=== PATIENT | female | born 1940 | race Caucasian/White ===

== ENCOUNTER 2023-04-18 13:14 | Inpatient (IN) | payer BC ==
[~2023-04-18] VITALS: Ht 154.9 cm; Wt 72.3 kg
[2023-04-18 13:54] VITALS: BP_SYST 124; PULSE 77; RESP 20; TEMP 98.3; O2SAT 98
[2023-04-18] MEDS ORDERED: NACL 0.9% 1,000 ML IV ONE (14:15)
[2023-04-18 15:06] LABS: ANION GAP 9 (5-15); BASOPHILS % (AUTO) 0.5 % (0.0-2.0); CALCIUM 8.9 mg/dL (8.4-11.0); CARBON DIOXIDE 28 mmol/L (23-29); CHLORIDE 108 mmol/L (98-107); CREATININE 0.75 mg/dL (0.55-1.30); EOSINOPHILS # (AUTO) 0.1 K/uL (0.0-0.4); GLUCOSE 102 mg/dL (74-106); MONOCYTES # (AUTO) 0.4 K/uL (0.0-1.0); POTASSIUM 3.4 mmol/L (3.5-5.1); SODIUM SERUM 145 mmol/L (136-145); UREA NITROGEN, BLOOD 15 mg/dL (8-21)
[2023-04-18 15:22] LABS: EOSINOPHILS % (AUTO) 2.9 % (0.0-4.0); HEMATOCRIT 38.9 % (36-48); HEMOGLOBIN 13.1 g/dL (12.0-16.0); LYMPHOCYTES # (AUTO) 1.6 K/uL (1.0-5.5); LYMPHOCYTES % (AUTO) 31.8 % (20.5-51.5); MEAN CORPUSCULAR HEMOGLOBIN 28 pg (27-31); MEAN CORPUSCULAR HGB CONC 34 % (32-36); MEAN CORPUSCULAR VOLUME 84 fL (79.0-98.0); MONOCYTES % (AUTO) 7.8 % (1.7-9.3); NEUTROPHILS # (AUTO) 2.9 K/uL (1.8-7.7); PLATELET COUNT (AUTO) 251 K/uL (130-430); RED BLOOD CELL COUNT(AUTO) 4.61 MIL/uL (4.2-6.2); RED CELL DISTRIBUTION WIDTH 13.1 % (9.0-15.0); WHITE BLOOD COUNT (AUTO) 5.1 K/uL (4.8-10.8)
[2023-04-18] MEDS ORDERED: D5/0.45 NS 1,000 ML IV ONE (19:30)
[2023-04-18 23:00] VITALS: BP_SYST 143; PULSE 78; RESP 18; TEMP 98
[2023-04-19] MEDS ORDERED: LEVO112C4 PO (04:00)
[2023-04-19] MEDS ORDERED: DESO60GE (04:00)
[2023-04-19] MEDS ORDERED: ECON70FO TP (04:00)
[2023-04-19] MEDS ORDERED: TRAM50TA2 PO (04:00)
[2023-04-19 08:00] VITALS: BP_SYST 104; PULSE 75; RESP 16; TEMP 97.7; O2SAT 100
[2023-04-19] MEDS ORDERED: MIDAZOLAM HCL 5 MG/5 ML VIAL ONE (10:04)
[2023-04-19] MEDS ORDERED: MEPERIDINE 100 MG INJ. 100 MG/ML VIAL ONE (10:04)
[2023-04-19] MEDS ORDERED: PANTOPRAZOLE SODIUM 40 MG/VIAL (PROTONIX) IVP ONE (11:15)
[2023-04-19 12:00] VITALS: BP_SYST 133; PULSE 85; RESP 18; TEMP 98; O2SAT 100
[2023-04-19] MEDS ORDERED: OMEP20TA20 PO (12:46)
[2023-04-19 16:00] VITALS: BP_SYST 138; PULSE 80; RESP 18; TEMP 98.2; O2SAT 96
[2023-04-19 20:00] VITALS: BP_SYST 146; PULSE 86; RESP 18; TEMP 97.7; O2SAT 95
[2023-04-20 01:02] VITALS: BP_SYST 132; PULSE 77; RESP 17; TEMP 98.4; O2SAT 99
[2023-04-20 01:37] VITALS: BP_SYST 126; BP_SYST 132; PULSE 77; RESP 18; TEMP 97.5; TEMP 98.4; O2SAT 99
[2023-04-20 06:30] VITALS: BP_SYST 126; PULSE 65; RESP 18; TEMP 97.5; O2SAT 96
[2023-04-20 07:50] LABS: BASOPHILS % (AUTO) 0.5 % (0.0-2.0); EOSINOPHILS # (AUTO) 0.2 K/uL (0.0-0.4); EOSINOPHILS % (AUTO) 3.9 % (0.0-4.0); HEMATOCRIT 35.4 % (36-48); HEMOGLOBIN 11.7 g/dL (12.0-16.0); LYMPHOCYTES % (AUTO) 35.5 % (20.5-51.5); MEAN CORPUSCULAR HEMOGLOBIN 28 pg (27-31); MEAN CORPUSCULAR HGB CONC 33 % (32-36); MEAN CORPUSCULAR VOLUME 84 fL (79.0-98.0); MONOCYTES # (AUTO) 0.5 K/uL (0.0-1.0); MONOCYTES % (AUTO) 9.4 % (1.7-9.3); NEUTROPHILS # (AUTO) 2.9 K/uL (1.8-7.7); NEUTROPHILS % (AUTO) 50.7 % (40.0-70.0); PLATELET COUNT (AUTO) 220 K/uL (130-430); RED CELL DISTRIBUTION WIDTH 13.2 % (9.0-15.0); WHITE BLOOD COUNT (AUTO) 5.7 K/uL (4.8-10.8)
[2023-04-20 07:59] LABS: ANION GAP 7 (5-15); CALCIUM 7.5 mg/dL (8.4-11.0); CARBON DIOXIDE 27 mmol/L (23-29); CHLORIDE 105 mmol/L (98-107); CREATININE 0.52 mg/dL (0.55-1.30); GLUCOSE 89 mg/dL (74-106); SODIUM SERUM 139 mmol/L (136-145); UREA NITROGEN, BLOOD 17 mg/dL (8-21)
[2023-04-20] MEDS ORDERED: PANTOPRAZOLE SODIUM 40 MG/VIAL (PROTONIX) IVP SCH (09:00)
== END 2023-04-20 07:15 | disposition home or self-care (01) | DRG 392 ==
LOC: SED 13:14 → SMU 19:19
PROVIDERS: ADMIT Preventive Medicine Preventive Medicine/Occupational Environmental Medicine; ATTEND Preventive Medicine Preventive Medicine/Occupational Environmental Medicine
PROC: 0D758ZZ Dilation of Esophagus, Via Natural or Artificial Opening Endoscopic (ICD-10-PCS; 2023-04-19)
PROC: 0DB28ZX Excision of Middle Esophagus, Via Natural or Artificial Opening Endoscopic, Diagnostic (ICD-10-PCS; principal; 2023-04-19 09:40)
PROC: 0DB78ZX Excision of Stomach, Pylorus, Via Natural or Artificial Opening Endoscopic, Diagnostic (ICD-10-PCS; 2023-04-19 09:40)
DX: K22.2 Esophageal obstruction (principal); K29.70 Gastritis, unspecified, without bleeding; K44.9 Diaphragmatic hernia without obstruction or gangrene; R13.10 Dysphagia, unspecified; E03.9 Hypothyroidism, unspecified; E87.6 Hypokalemia; M47.812 Spondylosis without myelopathy or radiculopathy, cervical region; Z90.49 Acquired absence of other specified parts of digestive tract; Z88.0 Allergy status to penicillin; Z79.899 Other long term (current) drug therapy
CPT/HCPCS: 36415; 43239; 70360-TC; 80048; 85025; 87081; 88305; 88312; 88313; 96360; 99285; C1769; J2175; J2250

== ENCOUNTER 2023-05-10 18:10 | Emergency (ER) | payer BC ==
[~2023-05-10] VITALS: Ht 165.1 cm; Wt 77.1 kg
[~2023-05-10 18:10] MED LIST: DESO60GE; ECON70FO TP; LEVO112C4 PO; OMEP20TA20 PO; TRAM50TA2 PO
[2023-05-10] MEDS ORDERED: SODIUM PHOSPHATE,MONO-DIBASIC 133 ML ENEMA RC ONE (19:15)
[2023-05-10 19:24] LABS: BASOPHILS % (AUTO) 0.6 % (0.0-2.0); EOSINOPHILS # (AUTO) 0.2 K/uL (0.0-0.4); EOSINOPHILS % (AUTO) 2.3 % (0.0-4.0); HEMATOCRIT 42.3 % (36-48); HEMOGLOBIN 13.4 g/dL (12.0-16.0); LYMPHOCYTES # (AUTO) 2.1 K/uL (1.0-5.5); LYMPHOCYTES % (AUTO) 30.7 % (20.5-51.5); MEAN CORPUSCULAR HEMOGLOBIN 27 pg (27-31); MEAN CORPUSCULAR HGB CONC 32 % (32-36); MEAN CORPUSCULAR VOLUME 86 fL (79.0-98.0); MONOCYTES # (AUTO) 0.5 K/uL (0.0-1.0); MONOCYTES % (AUTO) 6.8 % (1.7-9.3); NEUTROPHILS # (AUTO) 4.2 K/uL (1.8-7.7); NEUTROPHILS % (AUTO) 59.6 % (40.0-70.0); PLATELET COUNT (AUTO) 254 K/uL (130-430); RED BLOOD CELL COUNT(AUTO) 4.93 MIL/uL (4.2-6.2); RED CELL DISTRIBUTION WIDTH 13.6 % (9.0-15.0)
[2023-05-10 19:33] LABS: BILIRUBIN,URINE NEGATIVE (NEGATIVE); BLOOD, URINE NEGATIVE (NEGATIVE); CLARITY/URINE CLEAR (CLEAR); COLOR,URINE YELLOW (YELLOW); GLUCOSE,URINE NEGATIVE (NEGATIVE); KETONES,URINE NEGATIVE (NEGATIVE); LEUKOCYTE ESTERASE ,URINE 3+ (NEGATIVE); NITRITE, URINE POSITIVE (NEGATIVE); PH,URINE 6.5 (5.0-8.0); PROTEIN URINE NEGATIVE (NEGATIVE); UROBILINOGEN,URINE 0.2 (0.2-1.0)
[2023-05-10 19:34] LABS: ANION GAP 7 (5-15); CALCIUM 9.2 mg/dL (8.4-11.0); CARBON DIOXIDE 26 mmol/L (23-29); CHLORIDE 103 mmol/L (98-107); CREATININE 0.76 mg/dL (0.55-1.30); GLUCOSE 100 mg/dL (74-106); POTASSIUM 3.6 mmol/L (3.5-5.1); SODIUM SERUM 136 mmol/L (136-145); UREA NITROGEN, BLOOD 14 mg/dL (8-21)
[2023-05-10 19:38] LABS: ALANINE AMINOTRANSFERASE 11 U/L (12-78); ALBUMIN 3.1 g/dL (3.4-4.8); ASPARTATE AMINOTRANSFERASE 12 U/L (10-37); TOTAL BILIRUBIN 0.5 mg/dL (0.0-1.0); TOTAL PROTEIN, SERUM 7.1 g/dL (6.4-8.3)
[2023-05-10] MEDS ORDERED: CEPH250C PO (20:26)
[2023-05-10 20:41] LABS: BACTERIA,URINE MODERATE /HPF (None Seen); RBC,URINE 50-80 /HPF (0-3); WBC,URINE >100 /HPF (0-3)
[2023-05-10 23:15] VITALS: BP_SYST 113; PULSE 73; RESP 16; TEMP 97.8; O2SAT 97
== END 2023-05-10 23:15 | disposition home or self-care (01) ==
LOC: SED 18:10
DX: K59.00 Constipation, unspecified (principal); N39.0 Urinary tract infection, site not specified; R10.9 Unspecified abdominal pain; Z88.0 Allergy status to penicillin; Z79.899 Other long term (current) drug therapy
CPT/HCPCS: 36415; 74018; 80053; 81000; 81001; 81015; 85025; 87086; 99284

== ENCOUNTER 2023-09-20 16:32 | Inpatient (IN) | payer OTHER, BC ==
[~2023-09-20] VITALS: Ht 154.9 cm; Wt 79.4 kg
[~2023-09-20 16:32] MED LIST changes: +CEPH250C PO; -DESO60GE; +DESO60GE TP
[2023-09-20 17:01] VITALS: BP_SYST 122; PULSE 70; RESP 16; TEMP 98.5; O2SAT 97
[2023-09-20] MEDS: HYDROcodone/ACETAMIN 5-325 MG TAB (NORCO/ VICODIN) PO ONE (19:38)
[2023-09-20 20:39] LABS: BILIRUBIN,URINE NEGATIVE (NEGATIVE); CLARITY/URINE SL CLOUDY (CLEAR); COLOR,URINE YELLOW (YELLOW); GLUCOSE,URINE NEGATIVE (NEGATIVE); KETONES,URINE NEGATIVE (NEGATIVE); LEUKOCYTE ESTERASE ,URINE 3+ (NEGATIVE); NITRITE, URINE NEGATIVE (NEGATIVE); PROTEIN URINE NEGATIVE (NEGATIVE); UROBILINOGEN,URINE 0.2 (0.2-1.0)
[2023-09-20 20:57] LABS: BLOOD, URINE TRACE (NEGATIVE)
[2023-09-20 21:04] LABS: BASOPHILS % (AUTO) 0.3 % (0.0-2.0); EOSINOPHILS # (AUTO) 0.2 K/uL (0.0-0.4); LYMPHOCYTES # (AUTO) 2.1 K/uL (1.0-5.5); LYMPHOCYTES % (AUTO) 40.3 % (20.5-51.5); MEAN CORPUSCULAR HEMOGLOBIN 28 pg (27-31); MEAN CORPUSCULAR HGB CONC 33 % (32-36); MEAN CORPUSCULAR VOLUME 84 fL (79.0-98.0); MONOCYTES # (AUTO) 0.4 K/uL (0.0-1.0); NEUTROPHILS # (AUTO) 2.6 K/uL (1.8-7.7); NEUTROPHILS % (AUTO) 49.4 % (40.0-70.0); PLATELET COUNT (AUTO) 255 K/uL (130-430); RED BLOOD CELL COUNT(AUTO) 4.64 MIL/uL (4.2-6.2); RED CELL DISTRIBUTION WIDTH 12.6 % (9.0-15.0); WHITE BLOOD COUNT (AUTO) 5.2 K/uL (4.8-10.8)
[2023-09-20 21:29] LABS: ANION GAP 9 (5-15); CARBON DIOXIDE 28 mmol/L (23-29); CHLORIDE 103 mmol/L (98-107); CREATININE 0.79 mg/dL (0.55-1.30); GLUCOSE 94 mg/dL (74-106); POTASSIUM 3.4 mmol/L (3.5-5.1); SODIUM SERUM 140 mmol/L (136-145); UREA NITROGEN, BLOOD 18 mg/dL (8-21)
[2023-09-20 21:35] LABS: ALANINE AMINOTRANSFERASE 12 U/L (12-78); ASPARTATE AMINOTRANSFERASE 12 U/L (10-37); LIPASE 44 U/L (16-77); TOTAL BILIRUBIN 0.4 mg/dL (0.0-1.0); TOTAL PROTEIN, SERUM 6.8 g/dL (6.4-8.3)
[2023-09-20 21:56] LABS: BACTERIA,URINE MANY /HPF (None Seen)
[2023-09-20] MEDS: CIPROFLOXACIN LACT 400 MG/D5W 200 ML IV SCH (22:31)
[2023-09-20] MEDS: POTASSIUM CHLORIDE 20 MEQ/PKT PACKET PO ONE (23:31)
[2023-09-20] MEDS ORDERED: ACETAMINOPHEN 325 MG TABLET PO PRN (23:45)
[2023-09-21 03:53] LABS: ANION GAP 3 (5-15); CALCIUM 8.7 mg/dL (8.4-11.0); CARBON DIOXIDE 30 mmol/L (23-29); CHLORIDE 107 mmol/L (98-107); CREATININE 0.77 mg/dL (0.55-1.30); GLUCOSE 109 mg/dL (74-106); POTASSIUM 4.4 mmol/L (3.5-5.1); SODIUM SERUM 140 mmol/L (136-145); UREA NITROGEN, BLOOD 18 mg/dL (8-21)
[2023-09-21 04:07] LABS: ALANINE AMINOTRANSFERASE 13 U/L (12-78); ALBUMIN 2.8 g/dL (3.4-4.8); ASPARTATE AMINOTRANSFERASE 12 U/L (10-37); FREE T4 (FREE THYROXINE) 1.1 ng/dL (0.6-1.6); THYROID STIMULATING HORMONE 1.94 uIu/mL (0.34-4.82); TOTAL BILIRUBIN 0.4 mg/dL (0.0-1.0); TOTAL PROTEIN, SERUM 6.4 g/dL (6.4-8.3)
[2023-09-21 04:19] LABS: BASOPHILS % (AUTO) 0.7 % (0.0-2.0); EOSINOPHILS # (AUTO) 0.2 K/uL (0.0-0.4); EOSINOPHILS % (AUTO) 3.8 % (0.0-4.0); HEMATOCRIT 36.9 % (36-48); HEMOGLOBIN 12.5 g/dL (12.0-16.0); LYMPHOCYTES # (AUTO) 2.2 K/uL (1.0-5.5); LYMPHOCYTES % (AUTO) 41.7 % (20.5-51.5); MEAN CORPUSCULAR HEMOGLOBIN 28 pg (27-31); MEAN CORPUSCULAR HGB CONC 34 % (32-36); MEAN CORPUSCULAR VOLUME 84 fL (79.0-98.0); MONOCYTES # (AUTO) 0.5 K/uL (0.0-1.0); MONOCYTES % (AUTO) 10.2 % (1.7-9.3); NEUTROPHILS # (AUTO) 2.3 K/uL (1.8-7.7); NEUTROPHILS % (AUTO) 43.6 % (40.0-70.0); PLATELET COUNT (AUTO) 254 K/uL (130-430); RED BLOOD CELL COUNT(AUTO) 4.39 MIL/uL (4.2-6.2); WHITE BLOOD COUNT (AUTO) 5.3 K/uL (4.8-10.8)
[2023-09-21] MEDS: LEVOTHYROXINE SODIUM 0.112 MG TABLET PO SCH (07:05)
[2023-09-21] MEDS ORDERED: NON-FORMULARY MEDICATION (Omeprazole (Prilosec Otc) 1 TAB) PO SCH (09:00)
[2023-09-21] MEDS ORDERED: OMEP40CA20 PO (09:12)
[2023-09-21] MEDS: PANTOPRAZOLE SODIUM 40 MG TAB PO SCH (09:13)
[2023-09-21 11:32] VITALS: BP_SYST 127; PULSE 75; RESP 17; TEMP 96.9; O2SAT 0
[2023-09-21 11:36] VITALS: BP_SYST 127; PULSE 75; RESP 17; TEMP 96.9; O2SAT 97
[2023-09-21] MEDS: traMADol HCL HCL 50 MG TABLET (ULTRAM) PO PRN (14:11)
[2023-09-21 15:18] VITALS: BP_SYST 105; PULSE 83; RESP 16; TEMP 97.9; O2SAT 97
[2023-09-21 20:05] VITALS: BP_SYST 115; PULSE 93; RESP 17; TEMP 98.1; O2SAT 94
[2023-09-21 20:10] VITALS: O2SAT 93
[2023-09-21] MEDS: CIPROFLOXACIN LACT 400 MG/D5W 200 ML IV ONE (20:44)
[2023-09-22] MEDS: DOCUSATE SODIUM 250 MG CAPSULE PO ONE
[2023-09-22 00:29] VITALS: BP_SYST 135; PULSE 84; RESP 17; TEMP 97.9; O2SAT 93
[2023-09-22] MEDS: MILK OF MAGNESIA 30 ML UDC PO ONE ×2 (06:26→09:28)
[2023-09-22 08:01] VITALS: BP_SYST 123; PULSE 77; RESP 16; TEMP 97.1; O2SAT 98
[2023-09-22 08:31] VITALS: O2SAT 98
[2023-09-22] MEDS: DOCUSATE SODIUM 250 MG CAPSULE PO SCH (09:30)
[2023-09-22 11:11] VITALS: BP_SYST 128; PULSE 70; RESP 16; TEMP 96.7; O2SAT 96
[2023-09-22 15:40] VITALS: BP_SYST 117; PULSE 72; RESP 16; TEMP 98.7; O2SAT 93
[2023-09-22] MEDS: LACTULOSE 20 GM/30 ML UDC PO ONE (17:27)
[2023-09-22] MEDS: CHOLECALCIFEROL (VITAMIN D3) 2,000 UNIT TABLET PO ONE (17:27)
[2023-09-22 20:10] VITALS: BP_SYST 113; PULSE 86; RESP 18; TEMP 97.7; O2SAT 95
[2023-09-22] MEDS: CIPROFLOXACIN LACT 400 MG/D5W 200 ML IV ONE (23:22)
[2023-09-23] VITALS (8 sets, daily range): BP systolic 112–126; PULSE 75–81; RESP 15–18; TEMP 96.8–98.8; O2SAT 94–98
[2023-09-23] MEDS: MAGNESIUM OXIDE 400 MG TABLET PO SCH (09:00)
[2023-09-23] MEDS: CHOLECALCIFEROL (VITAMIN D3) 2,000 UNIT TABLET PO SCH (09:30)
[2023-09-23] MEDS ORDERED: CIPROFLOXACIN LACT 400 MG/D5W 200 ML IV SCH (10:00)
[2023-09-23] MEDS: cefTRIAXone 1 GM in D5W 50 ML IV SCH (11:30)
[2023-09-23] MEDS ORDERED: ROCPM1 IV (13:58)
== END 2023-09-23 18:50 | DRG 554 ==
LOC: SED 16:32 → SMU 21:44
PROVIDERS: ADMIT Internal Medicine; ATTEND Internal Medicine
PROC: 4A10X4Z Monitoring of Central Nervous Electrical Activity, External Approach (ICD-10-PCS; principal; 2023-09-23)
DX: M17.12 Unilateral primary osteoarthritis, left knee (principal); N39.0 Urinary tract infection, site not specified; E44.1 Mild protein-calorie malnutrition; E87.6 Hypokalemia; Z68.33 Body mass index [BMI] 33.0-33.9, adult; S20.212A Contusion of left front wall of thorax, initial encounter; K21.9 Gastro-esophageal reflux disease without esophagitis; E03.9 Hypothyroidism, unspecified; W18.39XA Other fall on same level, initial encounter; Y93.89 Activity, other specified; Y92.89 Other specified places as the place of occurrence of the external cause; Y99.8 Other external cause status; Z87.891 Personal history of nicotine dependence; Z90.49 Acquired absence of other specified parts of digestive tract; Z88.0 Allergy status to penicillin
CPT/HCPCS: 36415; 70450-TC; 71045; 71100; 73564; 80053; 81000; 81001; 81015; 83605; 83690; 83735; 83880; 84439; 84443; 84484; 85025; 87040; 87086; 93005; 93306; 95816; 97110-GP; 97116-GP; 97530-GP; 99285; J0696; J0744; J7060

== ENCOUNTER 2023-11-15 16:09 | Inpatient (IN) | payer OTHER, BC ==
[~2023-11-15] VITALS: Ht 152.4 cm; Wt 81.2 kg
[~2023-11-15 16:09] MED LIST changes: -CEPH250C PO; -OMEP20TA20 PO; +OMEP40CA20 PO; +ROCPM1 IV; -TRAM50TA2 PO
[2023-11-15 16:13] VITALS: BP_SYST 127; PULSE 84; RESP 18; TEMP 98.5; O2SAT 98
[2023-11-15] MEDS ORDERED: CLOT15CR5 TP (16:23)
[2023-11-15 17:37] LABS: BASOPHILS % (AUTO) 0.6 % (0.0-2.0); EOSINOPHILS # (AUTO) 0.2 K/uL (0.0-0.4); EOSINOPHILS % (AUTO) 3.4 % (0.0-4.0); HEMATOCRIT 39.4 % (36-48); HEMOGLOBIN 13.2 g/dL (12.0-16.0); LYMPHOCYTES # (AUTO) 1.9 K/uL (1.0-5.5); LYMPHOCYTES % (AUTO) 37.9 % (20.5-51.5); MEAN CORPUSCULAR HEMOGLOBIN 28 pg (27-31); MEAN CORPUSCULAR HGB CONC 34 % (32-36); MEAN CORPUSCULAR VOLUME 84 fL (79.0-98.0); MONOCYTES # (AUTO) 0.5 K/uL (0.0-1.0); MONOCYTES % (AUTO) 9.3 % (1.7-9.3); NEUTROPHILS # (AUTO) 2.4 K/uL (1.8-7.7); NEUTROPHILS % (AUTO) 48.8 % (40.0-70.0); PLATELET COUNT (AUTO) 255 K/uL (130-430); RED CELL DISTRIBUTION WIDTH 13.2 % (9.0-15.0)
[2023-11-15 18:05] LABS: ANION GAP 7 (5-15); CALCIUM 8.6 mg/dL (8.4-11.0); CARBON DIOXIDE 29 mmol/L (23-29); CHLORIDE 105 mmol/L (98-107); CREATININE 0.84 mg/dL (0.55-1.30); GLUCOSE 98 mg/dL (74-106); POTASSIUM 4.1 mmol/L (3.5-5.1); SODIUM SERUM 141 mmol/L (136-145); UREA NITROGEN, BLOOD 15 mg/dL (8-21)
[2023-11-15] MEDS ORDERED: KETO60CR2 TP (18:43)
[2023-11-15] MEDS ORDERED: LEVO112T5 PO (18:43)
[2023-11-15] MEDS ORDERED: DESONIDE (18:43)
[2023-11-15] MEDS ORDERED: DOCU-156 PO (18:43)
[2023-11-15] MEDS ORDERED: OMEPRAZOLE (18:43)
[2023-11-15] MEDS ORDERED: KETOROLAC TROMETHAMINE 15 MG VIAL IVP ONE (18:45)
[2023-11-15] MEDS ORDERED: ACETAMINOPHEN 500 MG TABLET PO ONE (18:45)
[2023-11-15 22:00] VITALS: BP_SYST 91; PULSE 74; RESP 16; TEMP 97.2; O2SAT 95
[2023-11-15 22:30] VITALS: BP_SYST 91; PULSE 74; RESP 16; TEMP 97.2
[2023-11-16] VITALS (7 sets, daily range): BP systolic 101–109; PULSE 66–91; RESP 16–18; TEMP 96.3–98.2; O2SAT 95–97
[2023-11-16] MEDS ORDERED: LEVOTHYROXINE SODIUM 112 MCG PO SCH (11:30)
[2023-11-16] MEDS ORDERED: OMEPRAZOLE Non-Formulary 20 MG CAPSULE.DR PO SCH (11:30)
[2023-11-16] MEDS ORDERED: HYDROcodone/ACETAMIN 5-325 MG TAB (NORCO/ VICODIN) PO PRN (11:30)
[2023-11-16] MEDS ORDERED: HYDROcodone/ACETAMIN 10-325 MG TAB PO PRN (11:30)
[2023-11-16] MEDS ORDERED: ACETAMINOPHEN 325 MG TABLET PO PRN ×2 (11:30→13:00)
[2023-11-16] MEDS ORDERED: LORazepam 2 MG/ML VIAL IVP PRN (11:30)
[2023-11-16] MEDS ORDERED: NALOXONE HCL 0.4 MG/ML AMP (NARCAN) IVP PRN ×2 (11:30)
[2023-11-16] MEDS ORDERED: ONDANSETRON HCL 4 MG/2 ML VIAL IVP PRN (11:30)
[2023-11-16] MEDS: CLOTRIMAZOLE/BETAMET DIPROP 15 GM TUBE TP SCH (11:30)
[2023-11-16 11:59] LABS: BASOPHILS % (AUTO) 0.7 % (0.0-2.0); EOSINOPHILS # (AUTO) 0.2 K/uL (0.0-0.4); EOSINOPHILS % (AUTO) 3.6 % (0.0-4.0); HEMATOCRIT 38.1 % (36-48); HEMOGLOBIN 12.7 g/dL (12.0-16.0); LYMPHOCYTES # (AUTO) 1.8 K/uL (1.0-5.5); LYMPHOCYTES % (AUTO) 33.9 % (20.5-51.5); MEAN CORPUSCULAR HEMOGLOBIN 29 pg (27-31); MEAN CORPUSCULAR HGB CONC 33 % (32-36); MEAN CORPUSCULAR VOLUME 86 fL (79.0-98.0); MONOCYTES # (AUTO) 0.5 K/uL (0.0-1.0); MONOCYTES % (AUTO) 9.3 % (1.7-9.3); NEUTROPHILS # (AUTO) 2.8 K/uL (1.8-7.7); NEUTROPHILS % (AUTO) 52.5 % (40.0-70.0); PLATELET COUNT (AUTO) 247 K/uL (130-430); RED BLOOD CELL COUNT(AUTO) 4.45 MIL/uL (4.2-6.2); WHITE BLOOD COUNT (AUTO) 5.3 K/uL (4.8-10.8)
[2023-11-16 12:03] LABS: ALANINE AMINOTRANSFERASE 41 U/L (12-78); ALBUMIN 2.8 g/dL (3.4-4.8); ANION GAP 8 (5-15); ASPARTATE AMINOTRANSFERASE 24 U/L (10-37); CALCIUM 8.6 mg/dL (8.4-11.0); CARBON DIOXIDE 29 mmol/L (23-29); CHLORIDE 105 mmol/L (98-107); CREATININE 0.93 mg/dL (0.55-1.30); GLUCOSE 98 mg/dL (74-106); POTASSIUM 4.1 mmol/L (3.5-5.1); SODIUM SERUM 142 mmol/L (136-145); TOTAL BILIRUBIN 0.3 mg/dL (0.0-1.0); TOTAL PROTEIN, SERUM 6.6 g/dL (6.4-8.3); UREA NITROGEN, BLOOD 23 mg/dL (8-21)
[2023-11-16] MEDS: PANTOPRAZOLE SODIUM 40 MG TAB PO ONE (13:20)
[2023-11-16] MEDS: NORMAL SALINE 5 ML DISP.SYRIN IVF SCH (13:22)
[2023-11-16] MEDS: CLOTRIMAZOLE/BETAMET DIPROP 15 GM TUBE TP ONE (15:00)
[2023-11-16] MEDS: DOCUSATE SODIUM 100 MG CAPSULE PO SCH (21:01)
[2023-11-16] MEDS: KETOCONAZOLE 2%, 60 GM TOPICAL CREAM. (NIZORAL) TP SCH (21:01)
[2023-11-17 01:33] VITALS: BP_SYST 111; PULSE 74; RESP 18; TEMP 96.5; O2SAT 93
[2023-11-17 04:59] LABS: BASOPHILS % (AUTO) 0.6 % (0.0-2.0); EOSINOPHILS # (AUTO) 0.2 K/uL (0.0-0.4); EOSINOPHILS % (AUTO) 4.1 % (0.0-4.0); HEMATOCRIT 37.5 % (36-48); HEMOGLOBIN 12.5 g/dL (12.0-16.0); LYMPHOCYTES # (AUTO) 2.6 K/uL (1.0-5.5); LYMPHOCYTES % (AUTO) 46.7 % (20.5-51.5); MEAN CORPUSCULAR HEMOGLOBIN 28 pg (27-31); MEAN CORPUSCULAR HGB CONC 33 % (32-36); MEAN CORPUSCULAR VOLUME 85 fL (79.0-98.0); MONOCYTES # (AUTO) 0.5 K/uL (0.0-1.0); NEUTROPHILS # (AUTO) 2.2 K/uL (1.8-7.7); NEUTROPHILS % (AUTO) 39.6 % (40.0-70.0); PLATELET COUNT (AUTO) 249 K/uL (130-430); RED BLOOD CELL COUNT(AUTO) 4.42 MIL/uL (4.2-6.2); RED CELL DISTRIBUTION WIDTH 13.3 % (9.0-15.0); WHITE BLOOD COUNT (AUTO) 5.6 K/uL (4.8-10.8)
[2023-11-17 05:24] LABS: ANION GAP 10 (5-15); CALCIUM 8.8 mg/dL (8.4-11.0); CARBON DIOXIDE 27 mmol/L (23-29); CHLORIDE 104 mmol/L (98-107); CREATININE 0.97 mg/dL (0.55-1.30); GLUCOSE 91 mg/dL (74-106); POTASSIUM 4.1 mmol/L (3.5-5.1); SODIUM SERUM 141 mmol/L (136-145); UREA NITROGEN, BLOOD 25 mg/dL (8-21)
[2023-11-17] MEDS: LEVOTHYROXINE SODIUM 0.112 MG TABLET PO SCH (06:23)
[2023-11-17 08:00] VITALS: BP_SYST 129; PULSE 53; RESP 16; TEMP 98; O2SAT 96
[2023-11-17] MEDS: PANTOPRAZOLE SODIUM 40 MG TAB PO SCH (08:34)
[2023-11-17 10:21] VITALS: O2SAT 96
[2023-11-17 11:08] VITALS: BP_SYST 105; PULSE 85; RESP 16; TEMP 97.6; O2SAT 95
[2023-11-17 15:01] VITALS: BP_SYST 110; PULSE 85; RESP 17; TEMP 98.2; O2SAT 95
[2023-11-18] MEDS ORDERED: ENOXAPARIN SODIUM 30 MG/0.3 ML SYRINGE SUBCUT SCH (09:00)
== END 2023-11-17 15:30 | disposition home health service (06) | DRG 392 ==
LOC: SED 16:09 → STU 18:45
PROVIDERS: ADMIT Preventive Medicine Preventive Medicine/Occupational Environmental Medicine; ATTEND Preventive Medicine Preventive Medicine/Occupational Environmental Medicine
DX: K21.9 Gastro-esophageal reflux disease without esophagitis (principal); R53.81 Other malaise; E03.9 Hypothyroidism, unspecified; R79.89 Other specified abnormal findings of blood chemistry; Z88.0 Allergy status to penicillin; Z79.899 Other long term (current) drug therapy
CPT/HCPCS: 36415; 71045; 80048; 80053; 83880; 84484; 85025; 93005; 97163-GP; 99285; G0378; J1885

== ENCOUNTER 2024-02-16 19:16 | Emergency (ER) | payer OTHER, BC ==
[~2024-02-16] VITALS: Ht 160 cm; Wt 72.6 kg
[~2024-02-16 19:16] MED LIST changes: +CLOT15CR5 TP; -DESO60GE TP; +DESONIDE; +DOCU-156 PO; -ECON70FO TP; +KETO60CR2 TP; +LEVO112T5 PO; +OMEPRAZOLE; -ROCPM1 IV
[2024-02-16 19:25] VITALS: BP_SYST 140; PULSE 85; RESP 16; TEMP 97.8; O2SAT 97
[2024-02-16] MEDS: NACL 0.9% 1,000 ML IV ONE (23:09)
[2024-02-16] MEDS: KETOROLAC TROMETHAMINE 30 MG VIAL IVP ONE (23:10)
[2024-02-16] MEDS ORDERED: NITR-85 PO (23:54)
[2024-02-17] MEDS ORDERED: CEFEPIME 1 GM/VIAL (MAXIPIME) ONE ×2 (01:08→01:09)
[2024-02-17] MEDS: CEFEPIME 1 GM in D5W 50 ML IV ONE (01:11)
[2024-02-17] MEDS ORDERED: NITR-85 PO (02:40)
[2024-02-17 02:43] VITALS: BP_SYST 134; PULSE 68; RESP 19; TEMP 98; O2SAT 97
[2024-02-17 07:40] LABS: ANION GAP 7 (5-15); CALCIUM 9.2 mg/dL (8.4-11.0); CARBON DIOXIDE 30 mmol/L (23-29); CHLORIDE 104 mmol/L (98-107); CREATININE 0.85 mg/dL (0.55-1.30); GLUCOSE 92 mg/dL (74-106); SODIUM SERUM 141 mmol/L (136-145); UREA NITROGEN, BLOOD 13 mg/dL (8-21)
[2024-02-17 07:41] LABS: ALANINE AMINOTRANSFERASE 26 U/L (12-78); ALBUMIN 3.4 g/dL (3.4-4.8); ASPARTATE AMINOTRANSFERASE 21 U/L (10-37); BILIRUBIN,DIRECT 0.1 mg/dL (0.0-0.3); TOTAL BILIRUBIN 0.3 mg/dL (0.0-1.0); TOTAL PROTEIN, SERUM 7.4 g/dL (6.4-8.3)
[2024-02-17 08:17] LABS: BILIRUBIN,URINE NEGATIVE (NEGATIVE); BLOOD, URINE NEGATIVE (NEGATIVE); CLARITY/URINE HAZY (CLEAR); COLOR,URINE YELLOW (YELLOW); GLUCOSE,URINE NEGATIVE (NEGATIVE); KETONES,URINE NEGATIVE (NEGATIVE); PH,URINE 6.5 (5.0-8.0); PROTEIN URINE NEGATIVE (NEGATIVE)
[2024-02-17 08:19] LABS: LEUKOCYTE ESTERASE ,URINE 1+ (NEGATIVE); NITRITE, URINE NEGATIVE (NEGATIVE); UROBILINOGEN,URINE 0.2 (0.2-1.0)
[2024-02-17 08:27] LABS: RBC,URINE 0-3 /HPF (0-3)
[2024-02-17 08:28] LABS: BACTERIA,URINE FEW /HPF (None Seen); MUCUS,URINE None Seen /LPF (None Seen)
[2024-02-17 09:33] LABS: BASOPHILS % (AUTO) 0.4 % (0.0-2.0); EOSINOPHILS # (AUTO) 0.3 K/uL (0.0-0.4); EOSINOPHILS % (AUTO) 4.6 % (0.0-4.0); HEMATOCRIT 40.9 % (36-48); HEMOGLOBIN 13.8 g/dL (12.0-16.0); LYMPHOCYTES # (AUTO) 2.6 K/uL (1.0-5.5); LYMPHOCYTES % (AUTO) 39.9 % (20.5-51.5); MEAN CORPUSCULAR HEMOGLOBIN 29 pg (27-31); MEAN CORPUSCULAR HGB CONC 34 % (32-36); MEAN CORPUSCULAR VOLUME 85 fL (79.0-98.0); MONOCYTES # (AUTO) 0.4 K/uL (0.0-1.0); NEUTROPHILS # (AUTO) 3.1 K/uL (1.8-7.7); NEUTROPHILS % (AUTO) 48.1 % (40.0-70.0); PLATELET COUNT (AUTO) 259 K/uL (130-430); RED BLOOD CELL COUNT(AUTO) 4.82 MIL/uL (4.2-6.2); RED CELL DISTRIBUTION WIDTH 12.9 % (9.0-15.0); WHITE BLOOD COUNT (AUTO) 6.4 K/uL (4.8-10.8)
== END 2024-02-17 02:43 | disposition home or self-care (01) ==
LOC: SED 19:16
DX: N39.0 Urinary tract infection, site not specified (principal); R10.32 Left lower quadrant pain; K21.9 Gastro-esophageal reflux disease without esophagitis; Z88.0 Allergy status to penicillin; Z79.899 Other long term (current) drug therapy; Z79.2 Long term (current) use of antibiotics
CPT/HCPCS: 99285; 74176; 96361; 96375; 80076; 80048; 81001; 85025; 87040; 87086; 87186; 36415; 83605; 96365; J1885; J7030; 81000; 81015; J0692